=== PATIENT | female | born 1990 | race Caucasian/White ===

== ENCOUNTER 2019-08-22 12:44 | Emergency (ER) | payer OTHER, SELFPAY ==
[2019-08-22 12:47] VITALS: BP 140/75; PULSE 104; RESP 18; TEMP 37; O2SAT 99
--- NOTE | 2019-08-22 12:52 | ED.GENADULT ---
HPI - General Adult General Chief complaint: Vaginal Bleeding Stated complaint: 7weeks preg, bleeding Time Seen by Provider: 08/22/19 12:48 Source: patient History of Present Illness HPI narrative: Patient is 7 weeks based on last menstrual period. She has a 5-year-old child and then has had 2 prior miscarriages, at 3 and 5 weeks. She is followed by Dr. Byrne and she has an appointment with her next week for an ultrasound. She called the office yesterday because she was bleeding and they told her to go to the emergency room should her bleeding increase. Today she passed a large clot, she denies any pain or fever. She does not know her blood type but she is never received RhoGam for her previous 2 miscarriages. She is a AB 2 currently . Onset (ago): day(s) Associated symptoms: denies other symptoms Related Data Home Medications Medication Instructions Recorded Confirmed [id number] fum-folic [id number] pkg PO DAILY 08/22/19 [Daily ] Allergies Allergy/AdvReac Type Severity Reaction Status Date / Time No Known Allergies Allergy Verified 08/22/19 13:14 Review of Systems Review of Systems: All systems reviewed & are unremarkable except as noted in HPI and below Psychiatric: Psychiatric: Reports anxiety [facility] Social History Social History (Updated 08/22/19 @ 13:04 by Ceci Webb PA-C) Tobacco type: e-cigarettes Smoking end date: 08/12/19 Alcohol intake: never Substance use: never Living arrangements: with family Occupation/Education: occupation 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 Exam Const: General: healthy appearing and no acute distress Orientation/consciousness: patient oriented x3 HENMT: Head: normal to inspection Eyes: Pupils: Equal, round and reactive pupils present Resp: Effort & Inspection: normal respiratory effort Auscultation: clear to auscultation bilaterally Cardio: Rate: tachycardic Rhythm: regular rhythm GI: GI Palp: Yes Soft to palpation Auscultation: normal bowel sounds : Speculum Exam - Vagina: normal appearance of the vagina and vaginal bleeding (1 small clot) Speculum Exam - Cervix: normal appearance of the cervix and Cervical os closed Skin: General skin exam: normal color Rashes: no rashes Neuro: General: patient oriented x3 and moves all extremities Extrem: General: normal to inspection Psych: Affect: Anxious affect present Course Course Emergency Course: Pelvic exam with mild bleeding, cervix is closed. Spoke with Dr. Hassan, on-call for Chavez. She would like a repeat Beta HCG quant on Saturday prior to ultrasound. Will obtain blood type here, pt has not required RhoGam with prior . Plan discussed with patient. Transfer Transfered to: [facility] Medical Decision Making Lab Data Lab results reviewed: Yes I reviewed the patient's lab results. Discharge Plan Discharge Clinical Impression: Threatened Patient Disposition: Home, Self-Care Condition: Stable Instructions: Antibiotic Form, Threatened Miscarriage (ED) Prescriptions: No Action Daily [id number] mg-mcg-mg Combo Pack PO DAILY RF: 0 Other Ambulatory Orders: Beta HCG Quantitative (Routine) Timeframe: [id number] Facility: [facility] - Location: [facility] Laboratory Ordered By: Ceci Webb Follow-up/Referrals: Jeff Byrne MD [Physician] - 08/24/19 (Have blood drawn prior to ultrasound appointment.) UNKNOWN,DOCTOR [Primary Care Provider] - Stand Alone Forms: Work/School Release IP Time of Disposition: 15:03
[2019-08-22 14:06] LABS: Beta HCG Quantitative 597.52 mIU/ML
[2019-08-22 15:15] VITALS: BP 129/80; PULSE 84; RESP 16; O2SAT 100
== END 2019-08-22 15:10 | disposition home or self-care (01) ==
PROVIDERS: Physician Assistant; Emergency Provider Emergency Medicine
DX: O20.0 Threatened abortion (principal); Z3A.01 Less than 8 weeks gestation of pregnancy; Z87.891 Personal history of nicotine dependence
CPT/HCPCS: 36415; 81025; 84702; 86850; 86900; 86901; 99284

== ENCOUNTER 2019-08-24 09:14 | Outpatient (CLI) | payer OTHER, SELFPAY ==
--- NOTE | ~2019-08-24 | US_ITS ---
EXAMINATION: US OB transvaginal DATE: 08/24/2019 09:35 INDICATION: Gestational dating. Vaginal bleeding. TECHNIQUE: Real-time transvaginal obstetric ultrasound. FINDINGS: No prior studies for comparison. The uterus measures 6.4 x 4.7 x 5.1 cm. No intrauterine gestational sac or pole identified. The re is fluid in the lower aspect of the endometrium. Endometrium measures 9 mm thickness. Ovaries are within normal limits without significant solid or cystic mass. Right ovary measures 2.6 x 1.6 x 3.2 c m. Left ovary measures 1.8 x 1.8 x 1.4 cm. No free fluid in the pelvis. IMPRESSION: 1. Unremarkable pelvic ultrasound. No evidence for intrauterine gestational sac or pole. If the re is a positive test, differential diagnosis includes very early intrauterine , e ctopic and failed . Recommend follow-up with serial quantitative beta-hCG levels a nd ultrasound as clinically indicated. Reviewed, dictated and finalized at location A. IMPRESSION: 1. Unremarkable pelvic ultrasound. No evidence for intrauterine gestational sac or pole. If there is a positive test, differential diagnosis i ncludes very early intrauterine , ectopic and failed pregnan cy. Recommend follow-up with serial quantitative beta-hCG levels and ultrasound as clinically indicated.
== END 2019-08-24 09:15 ==
LOC: MICIMG 09:14
PROVIDERS: Visit Provider Obstetrics & Gynecology
DX: O26.21 Pregnancy care for patient with recurrent pregnancy loss, first trimester (principal); Z3A.00 Weeks of gestation of pregnancy not specified
CPT/HCPCS: 76817

== ENCOUNTER 2020-05-25 14:03 | Outpatient (CLI) | payer OTHER, SELFPAY ==
--- NOTE | ~2020-05-25 | US_ITS ---
EXAMINATION: US OB transvaginal DATE: 05/25/2020 14:31 INDICATION: viability assessment during first trimester TECHNIQUE: Real-time pelvic transabdominal and transvaginal ultrasound was performed. COMPARISON: None. FINDINGS: The uterus measures 9.2 x 4.9 x 5.6 cm. There is an intrauterine gestational sac. A yolk sa c is identified. heart motion is identified measuring 108 beats per minute (bpm) by M-mode Dopp ler. The crown rump length measures 3 mm , which correlates with an estimated gestational age o f 5 weeks and 6 day(s) (+/-) 4 day(s). The right ovary measures 3.3 x 2.1 x 2.3 cm. The left ovary measures 1.9 x 1.2 x 1.7 cm. There is nor mal vascular flow in the ovaries. There is no free fluid in the pelvis. IMPRESSION: 1. Live intrauterine with an estimated gestational age of 5 weeks and 6 day(s) (+/-) 4 day( s) and an estimated delivery date of 01/19/2021. Reviewed, dictated and finalized at location A. 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 IMPRESSION: 1. Live intrauterine with an estimated gestational age of 5 weeks and 6 day(s) (+/-) 4 day(s) and an estimated delivery date of 01/19/2021.
== END 2020-05-25 14:04 ==
PROVIDERS: Visit Provider Obstetrics & Gynecology
DX: O26.21 Pregnancy care for patient with recurrent pregnancy loss, first trimester (principal); Z3A.01 Less than 8 weeks gestation of pregnancy
CPT/HCPCS: 76817

== ENCOUNTER 2020-06-03 13:34 | Outpatient (CLI) | payer OTHER, SELFPAY ==
--- NOTE | ~2020-06-03 | US_ITS ---
EXAMINATION: US OB transvaginal DATE: 06/03/2020 13:56 INDICATION: with inconclusive viability. TECHNIQUE: Real-time transvaginal pelvic ultrasound was performed. COMPARISON: Ultrasound 05/25/2020 FINDINGS: The uterus measures 7.8 x 5.9 x 6.2 cm. There is an intrauterine gestational sac. A yolk sac is ident ified. The crown rump length measures 1.5 cm, which correlates with an estimated gestational a ge of 7 weeks and 6 day(s) (+/-) 5 day(s). heart motion is identified measuring 146 beats per m inute (bpm) by M-mode Doppler. The ovaries are not visualized. There is no free fluid in the pelvis. IMPRESSION: 1. Single living intrauterine gestation with estimated date of delivery of 01/19/2021 based on the ult rasound from 05/25/2020. Reviewed, dictated and finalized at location B. 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 Single living intrauterine gestation with estimated date of delivery of 01/19 based on the ultrasound from 05/25/2020.
== END 2020-06-03 13:35 ==
PROVIDERS: Visit Provider Obstetrics & Gynecology
DX: O36.80X0 Pregnancy with inconclusive fetal viability, not applicable or unspecified (principal); Z3A.00 Weeks of gestation of pregnancy not specified
CPT/HCPCS: 76817

== ENCOUNTER 2020-08-19 15:17 | Outpatient (CLI) | payer OTHER, SELFPAY ==
--- NOTE | ~2020-08-19 | US_ITS ---
EXAMINATION: US OB >= 14 weeks Fetus DATE: 08/19/2020 15:57 INDICATION: Second trimester anatomic survey TECHNIQUE: Real-time ultrasound of the pelvis was performed. COMPARISON: None. FINDINGS: There is a single living fetus in breech presentation. The placenta is posterior and 4.4 cm from the internal cervical os. heart rate is 136 beats per minute (bpm). cardiac activity and fet al movement are noted. The amniotic fluid index is subjectively normal. The following anatomy was identified as normal: 4 chamber heart 3 vessel cord cord insertion kidneys urinary bladder stomach spine diaphragm ventricles cisterna magna cerebellum The following biometric data were obtained: Biparietal diameter (BPD): 4.2 cm; head circumference (HC): 15.6 cm; abdominal circumference (AC): 12 .6 cm; femur length (FL): 2.6 cm. These measurements are concordant. Estimated weight is 226 g +/- 33 g, which correlates with the 45th percentile when 01/19/2021 is used as estimated date of delivery. As single measurements, these parameters are each equal to the following estimated gestational ages w ith ranges of +/- 2 standard deviations: BPD: 18 weeks 6 days ( 17 weeks 1 days - 20 weeks 4 days). HC: 18 weeks 4 days ( 17 weeks 1 days - 20 weeks 0 days). AC: 18 weeks 2 days ( 16 weeks 1 days - 20 weeks 2 days). FL: 17 weeks 6 days ( 16 weeks 4 days - 19 weeks 2 days). estimated gestational age based solely on measurements from this exam is 18 weeks 3 days +/- 1 weeks 2 days. IMPRESSION: 1. Single living fetus in breech presentation. 2. Estimated weight is 226 g +/- 33 g, which correlates with the 45th percentile when 01/19/2021 is used as estimated date of delivery. Reviewed, dictated and finalized at location A. IMPRESSION: 1. Single living fetus in breech presentation. 2. Estimated weight is 226 g +/- 33 g, which correlates with the 45th per centile when 01/19/2021 is used as estimated date of delivery.
== END 2020-08-19 15:18 ==
PROVIDERS: Visit Provider Obstetrics & Gynecology
DX: Z36.9 Encounter for antenatal screening, unspecified (principal); Z3A.18 18 weeks gestation of pregnancy
CPT/HCPCS: 76805

== ENCOUNTER 2020-11-02 13:28 | Outpatient (CLI) | payer OTHER, SELFPAY ==
--- NOTE | ~2020-11-02 | US_ITS ---
EXAMINATION: US OB follow up DATE: 11/02/2020 13:59 INDICATION: Size greater than dates. TECHNIQUE: Real-time ultrasound of the pelvis was performed. COMPARISON: Ultrasound 08/19/2020, 06/03/2020, 05/25/2020 FINDINGS: There is a single living fetus in vertex presentation. The placenta is posterior. heart rate i s 145 beats per minute (bpm). The amniotic fluid index is 14.8 cm, which is normal. The following biometric data were obtained: Biparietal diameter (BPD): 7.5 cm; head circumference (HC): 28.8 cm; abdominal circumference (AC): 28 .3 cm; femur length (FL): 5.9 cm. These measurements are concordant. Estimated weight is 1791 g +/- 269 g, which correlates with >97th percentile when 01/19/21 is use d as estimated date of delivery. As single measurements, these parameters are each equal to the following estimated gestational ages w ith ranges of +/- 2 standard deviations: BPD: 30 weeks 0 days (27 weeks 6 days - 32 weeks 2 days). HC: 31 weeks 5 days (28 weeks 5 days - 34 weeks 5 days). AC: 32 weeks 2 days (29 weeks 2 days - 35 weeks 2 days). FL: 30 weeks 5 days (27 weeks 5 days - 33 weeks 5 days). estimated gestational age based solely on measurements from this exam is 31 weeks 1 days +/- 2 weeks 1 days. IMPRESSION: 1. Single living fetus in vertex presentation. 2. Large for gestational age. Estimated weight is 1791 g +/- 269 g, which correlates with >97th percentile when 01/19/21 is used as estimated date of delivery. This date was set by ultrasound on 05/13. Reviewed, dictated and finalized at location A. IMPRESSION: 1. Single living fetus in vertex presentation. 2. Large for gestational age. Estimated weight is 1791 g +/- 269 g, which correlates with >97th percentile when 01/19/21 is used as estimated date of deli very. This date was set by ultrasound on 05/25/2020.
== END 2020-11-02 13:29 ==
PROVIDERS: Visit Provider Nurse Practitioner
DX: O36.63X0 Maternal care for excessive fetal growth, third trimester, not applicable or unspecified (principal)
CPT/HCPCS: 76816

== ENCOUNTER 2020-11-27 10:24 | Observation (INO) | payer OTHER, SELFPAY ==
[2020-11-27] VITALS (20 sets, daily range): BP systolic 113–138; BP diastolic 60–82; PULSE 88–113; O2SAT 99–100; BMI 47.5
[2020-11-27] MEDS: TERBUTALINE SULFATE 1 MG/ML VIAL 0.25 MG SUB-Q (14:02)
--- NOTE | 2020-11-27 14:04 | OBADM ---
This patient, Mamta Ansari, admitted to the OB room OB Post 113 for observation. Patient/family oriented to hospital policies and general routines including ID bracelet, bed and alarms, visiting hours, pain management, procedures, bathroom and other care routines, personal items, smoking policy, room service/diet, call light and visiting hours. Patient/Family are encouraged to report perceived risks to care and to ask questions if they do not understand what they are told or what they should do.
--- NOTE | 2020-11-27 14:10 | PC.NURSE ---
Pt states she takes 34 units of insulin at bedtime but does not know what type.
--- NOTE | 2020-12-12 09:38 | PM.OBTRLD ---
OB - Triage/Final Diagnosis Visit Information Reason for evaluation: other ( contractions) Comments/Additional reasons for admission: I have assessed the risk for this patient, Mamta Ansari, and determined that she would benefit from observation care.
== END 2020-11-27 15:25 | disposition home or self-care (01) ==
PROVIDERS: Admitting Provider Obstetrics & Gynecology; Visit Provider Obstetrics & Gynecology Gynecology
DX: O60.00 Preterm labor without delivery, unspecified trimester (principal); Z3A.00 Weeks of gestation of pregnancy not specified
CPT/HCPCS: 96372; G0378; G0379; J3105

== ENCOUNTER 2020-12-20 16:57 | Outpatient (CLI) | payer OTHER, SELFPAY ==
--- NOTE | ~2020-12-20 | US_ITS ---
EXAMINATION: US OB follow up DATE: 12/20/2020 17:26 INDICATION: Estimated size greater than expected for estimated gestational age during third [facility] . TECHNIQUE: Real-time ultrasound of the pelvis was performed. The interpreting radiologist was not pre sent for the study. COMPARISON: None. FINDINGS: There is a single living fetus in vertex presentation. The placenta is posterior. heart rate i s 127 beats per minute (bpm). The amniotic fluid index is 21.2 cm, which is normal (5th%-95%: 7.5-24 .9 cm at 35 weeks estimated gestational age). The following biometric data were obtained: BPD: 9.1 cm -> 36 weeks 5 days Head circumference: 33.3 cm -> 38 weeks 0 days Abdominal circumference: 35.5 cm -> 39 weeks 3 days Femur length: 7.1 cm -> 36 weeks 2 days These measurements are concordant. Head circumference to abdominal circumference ratio: 0.94 (normal range 0.91-1.05). Estimated weight: 3427 g (+/-) 514 g or 7 lbs. 9 oz. (+/-) 1 lbs. 2 oz. IMPRESSION: 1. Single living fetus in vertex presentation with heart rate of 127 bpm. 2. Normal amniotic fluid index of 21.2 cm. 3. Estimated weight is 97th percentile by Hadlock criteria when 01/19/2021 is used as the estimated date of delivery (ARMIDA) res pond earliest ultrasound performed at this institution on 05/25/2020. Please correlate with clinical i nformation or earlier ultrasounds for most accurate ARMIDA. Reviewed, dictated and finalized at location A. IMPRESSION: 1. Single living fetus in vertex presentation with heart rate of 127 bpm. 2. Normal amniotic fluid index of 21.2 cm. 3. Estimated weight is 97th percentile by Hadlock criteria when 01/19/2021 is used as the estimated date of delivery (ARMIDA) respond earliest ultrasound performed at this institution on 05/25/2020. Please correlate with clinical information or earlier ultrasounds f or most accurate ARMIDA.
== END 2020-12-20 16:58 ==
PROVIDERS: Visit Provider Obstetrics & Gynecology
DX: O36.63X0 Maternal care for excessive fetal growth, third trimester, not applicable or unspecified (principal); Z3A.00 Weeks of gestation of pregnancy not specified
CPT/HCPCS: 76816

== ENCOUNTER 2021-01-03 13:47 | Outpatient (CLI) | payer OTHER, SELFPAY ==
--- NOTE | ~2021-01-03 | US_ITS ---
EXAMINATION: US OB follow up EXAM DATE: 01/03/2021 14:11 INDICATION: Large for gestational age. 3rd trimester. TECHNIQUE: Pelvic obstetrical transabdominal sonogram was performed by a technologist. There are mu ltiple grayscale and Doppler images available for interpretation. Comparison is made to prior examina tion from 12/20/2020. FINDINGS: There is a single fetus identified in vertex presentation with a heart rate of 138 beats pe r minute. The placenta is located in the posterior position. There is no sonographic evidence of ret roplacental hemorrhage identified. The amniotic fluid index is 17.8 centimeters, which is normal. BIOMETRIC DATA: Biparietal diameter (BPD): 9.4 cm ----------------> 38 weeks 0 days. Head circumference (HC): 34.8 cm ----------------> 40 weeks 3 days. Abdominal circumference (AC): 41.1 cm ----------> out of range. Femur length (FL): 7.9 cm --------------------------> 40 weeks 2 days. These measurements are discordant, FL/AC 2 standard deviations out of range, and low HC/AC ratio. HC/AC ratio is 0.85 (The 5th -- 95th percentile range is 0.89-1.04. Estimated weight is 4795 g +/- 719 g. This is the greater than 97th percentile when the [facility] reported clinical gestation age 37 weeks 5 days, clinical estimated date of delivery (ARMIDA-OPE) 01/19 is used. estimated gestational age based on measurements from this exam is 29 weeks 4 days, w ith an estimated date of delivery (ARMIDA-AUA) 01/06. IMPRESSION: 1. Single fetus in vertex presentation with heart rate 138 beats per minute. 2. Estimated weight of 4795 grams, greater than 97th percentile using the currently reported c linical gestation age of 37 weeks 5 days, ARMIDA(OPE) 01/19. 3. Discordant FL/AC and HC/AC ratios. 4. Normal ASIA 17.8 cm. Reviewed, dictated and finalized at location A. IMPRESSION: 1. Single fetus in vertex presentation with heart rate 138 beats per minute. 2. Estimated weight of 4795 grams, greater than 97th percentile using th e currently reported clinical gestation age of 37 weeks 5 days, ARMIDA(OPE) 01/19. 3. Discordant FL/AC and HC/AC ratios. 4. Normal ASIA 17.8 cm.
== END 2021-01-03 13:48 ==
PROVIDERS: Visit Provider Obstetrics & Gynecology
DX: O36.60X0 Maternal care for excessive fetal growth, unspecified trimester, not applicable or unspecified (principal); Z3A.00 Weeks of gestation of pregnancy not specified
CPT/HCPCS: 76816

== ENCOUNTER 2021-01-05 15:24 | Inpatient (IN) | payer OTHER, SELFPAY ==
[2021-01-05] VITALS (63 sets, daily range): BP systolic 83–166; BP diastolic 53–104; PULSE 68–96; RESP 16–18; TEMP 36.4–36.7; O2SAT 94–100; BMI 55.6
[2021-01-05 16:31] LABS: Basophils Percent Auto 0.2 % (0.2-1.2); Eosinophils Absolute Auto 0.1 K/mm3 (0-0.3); Eosinophils Percent Auto 1.1 % (0-4.4); Hematocrit 33.6 % (37.0-47.0); Hemoglobin 10.6 g/dL (12.0-15.0); Immature Granulocyte Absolute 0.05 K/mm3 (0.00-0.031); Immature Granulocyte Percent A 0.5 % (0-0.5); Immature Platelet Fraction Pct 16.8 % (0.9-11.2); Lymphocytes Percent Auto 28.5 % (18.3-44.2); Mean Corpuscular HGB Conc 31.5 g/dl (32-36); Mean Corpuscular Hemoglobin 28.7 pg (26-34); Mean Corpuscular Volume 91.1 fl (80-100); Mean Platelet Volume 13.6 fl (7.4-10.4); Monocytes Absolute Auto 0.6 K/mm3 (0.1-0.6); Monocytes Percent Auto 5.8 % (2.6-8.5); Neutrophils Absolute Auto 6.1 K/mm3 (1.3-6.7); Neutrophils Percent Auto 63.9 % (45.5-73.1); Platelet Count Result 161 k/mm3 (150-375); Red Blood Count 3.69 M/mm3 (4.2-5.4); Red Cell Distribution Width 15.2 % (11.5-14.5); White Blood Count 9.5 K/mm3 (4.5-10.0)
[2021-01-05 17:34] LABS: Add Urine Microscopic? YES; Appearance Urine Clear (Clear); Bilirubin Urine Negative (Negative); Blood Urine 1+ (Negative); Color Urine Yellow (Yellow); Glucose Urine UA Negative (Negative); Ketones Urine Negative (Negative); Leukocyte Esterase Ur Trace LEU/UL (Negative); Nitrate Urine Negative (Negative); Protein Urine 2+ mg/dL (Negative); Squamous Epithelial Cell Urine Few /hpf (Few); Urobilinogen Urine Negative mg/dL (<2.0); WBC Urine 0-3 /hpf
[2021-01-05 17:48] LABS: Alanine Aminotransferase 13 U/L (4-35); Alkaline Phosphatase 118 U/L (38-126); Anion Gap 6 mmol/L (8-16); Aspartate Amino Transferase 25 U/L (14-36); Bilirubin,Total 0.4 mg/dL (0.2-1.3); Blood Urea Nitrogen 9 mg/dL (7-17); Calcium 8.2 mg/dL (8.4-10.2); Carbon Dioxide 22 mmol/L (22-30); Chloride 106 mmol/L (98-107); Estimated Glomerular Filt Rate > 60; Glucose 156 mg/dL (65-110); Sodium 134 mmol/L (137-145); Uric Acid 5.8 mg/dL (2.5-7.5)
[2021-01-05 19:18] LABS: Creatinine Urine 55.2 mg/dL; Total Protein Urine Random 163 mg/dL; Ur Ttl Prot Creatinine Ratio 2.95 mg/mg (0-0.20)
--- NOTE | 2021-01-05 19:54 | WPDANESEPP ---
Anes - Eval Pre Procedure Procedure: Operation Date: 01/05/21 19:45 Proposed Procedures p Section - Belen Burciaga MD Date/Time: 01/05/21 19:54 Pre Op Diagnosis: hypertension in Patient Data Age: 30 Gender: F Height: Weight: Last Vital Signs Pulse 90 01/05/21 19:31 BP 155/103 H 01/05/21 19:31 Allergies Allergy/AdvReac Type Severity Reaction Status Date / Time No Known Allergies Allergy Verified 11/27/20 14:08 Home Medications Medication Instructions Recorded Confirmed Type ergocalciferol (vitamin D2) 1,250 mcg PO WEEKLY 12/30/20 01/05/21 History [Vitamin D2] ferrous sulfate 325 mg PO DAILY 12/30/20 01/05/21 History insulin NPH isoph U-100 human 52 unit SUBCUT HS 12/30/20 01/05/21 History [Humulin N NPH U-100 Insulin] aspirin 81 mg PO DAILY 01/05/21 01/05/21 History [id number] 1 cap PO HS 01/05/21 01/05/21 History [One-A-Day -1] Laboratory Tests 01/05/21 01/05/21 01/05/21 16:18 16:18 17:03 WBC 9.5 K/mm3 K/mm3 (4.5-10.0) RBC 3.69 M/mm3 L M/mm3 (4.2-5.4) Hgb 10.6 g/dL L g/dL (12.0-15.0) Hct 33.6 % L % (37.0-47.0) MCV 91.1 fl fl (80-100) MCH 28.7 pg pg (26-34) MCHC 31.5 g/dl L g/dl (32-36) RDW 15.2 % H % (11.5-14.5) Plt Count 161 k/mm3 k/mm3 (150-375) MPV 13.6 fl H fl (7.4-10.4) Immature Gran % (Auto) 0.5 % % (0-0.5) Neut % (Auto) 63.9 % % (45.5-73.1) Lymph % (Auto) 28.5 % % (18.3-44.2) Willacy % (Auto) 5.8 % % (2.6-8.5) Eos % (Auto) 1.1 % % (0-4.4) Baso % (Auto) 0.2 % % (0.2-1.2) Lymph # (Auto) 2.70 K/mm3 K/mm3 (0.9-3.2) Willacy # (Auto) 0.6 K/mm3 K/mm3 (0.1-0.6) Eos # (Auto) 0.1 K/mm3 K/mm3 (0-0.3) Baso # (Auto) 0.0 K/mm3 K/mm3 (0.0-0.1) Abs Immat Gran (auto) 0.05 K/mm3 H K/mm3 (0.00-0.031) Absolute Neuts (auto) 6.1 K/mm3 K/mm3 (1.3-6.7) Absolute Nucleated RBC 0.0 K/mm3 K/mm3 (0.0-0.012) Nucleated RBC % 0.0 % % (0.0-0.2) % Immature Plt Fraction 16.8 % H % (0.9-11.2) Sodium 134 mmol/L L mmol/L (137-145) Potassium 4.0 mmol/L mmol/L (3.4-5.0) Chloride 106 mmol/L mmol/L (98-107) Carbon Dioxide 22 mmol/L mmol/L (22-30) Anion Gap 6 mmol/L L mmol/L (8-16) BUN 9 mg/dL mg/dL (7-17) Creatinine 0.60 mg/dL L mg/dL (0.7-1.0) Estim Creat Clear Calc Not Reportable Estimated GFR > 60 (59 - ) Glucose 156 mg/dL H mg/dL (65-110) Uric Acid 5.8 mg/dL mg/dL (2.5-7.5) Calcium 8.2 mg/dL L mg/dL (8.4-10.2) Total Bilirubin 0.4 mg/dL mg/dL (0.2-1.3) AST 25 U/L U/L (14-36) ALT 13 U/L U/L (4-35) Alkaline Phosphatase 118 U/L U/L (38-126) Total Protein 6.0 g/dL L g/dL (6.3-8.2) Albumin 3.0 g/dL L g/dL (3.5-5.1) Urine Color Urine Appearance Urine pH Ur Specific Eva Urine Protein Urine Glucose (UA) Urine Ketones Ur Blood (Man) Urine Nitrate Urine Bilirubin Urine Urobilinogen Leukocyte Esterase Rfl Urine RBC Urine WBC Ur Squamous Epith Cells U Random Total Protein 163 mg/dL mg/dL Urine Creatinine 55.2 mg/dL mg/dL Protein/Creat Ratio 2 2.95 mg/mg H mg/mg (0-0.20) 01/05/21 17:03 WBC RBC Hgb Hct MCV MCH MCHC RDW Plt Count MPV Immature Gran % (Auto) Neut % (Auto) Lymph % (Auto) Willacy % (Auto) Eos % (Auto) Baso % (Auto) Lymph # (Aut
--- NOTE | 2021-01-05 19:57 | LDADM ---
This patient, Mamta Ansari, was admitted to Labor/Delivery/Recovery 120 on 01/05/21 at 15:24. Plans for labor, pain management and were discussed with patient. Patient/family oriented to hospital policies and general routines including ID bracelet, bed and alarms, visiting hours, pain management, procedures, bathroom and other care routines, personal items, smoking policy, room service/diet and guest tray routines, security routines, and visiting hours. Patient/Family are encouraged to report perceived risks to care and to ask questions if they do not understand what they are told or what they should do. See OBIX for further documentation.
[2021-01-05] MEDS: LACTATED RINGERS 1,000 ML 125 ML IV CONT (20:01)
[2021-01-05 20:09] LABS: Basophils Percent Auto 0.2 % (0.2-1.2); Eosinophils Absolute Auto 0.1 K/mm3 (0-0.3); Eosinophils Percent Auto 0.9 % (0-4.4); Hematocrit 37.6 % (37.0-47.0); Hemoglobin 12.3 g/dL (12.0-15.0); Immature Granulocyte Absolute 0.07 K/mm3 (0.00-0.031); Immature Granulocyte Percent A 0.6 % (0-0.5); Immature Platelet Fraction Pct 15.8 % (0.9-11.2); Lymphocytes Absolute Auto 4.32 K/mm3 (0.9-3.2); Lymphocytes Percent Auto 36.5 % (18.3-44.2); Mean Corpuscular HGB Conc 32.7 g/dl (32-36); Mean Corpuscular Hemoglobin 29.2 pg (26-34); Mean Corpuscular Volume 89.3 fl (80-100); Mean Platelet Volume 12.9 fl (7.4-10.4); Monocytes Absolute Auto 0.8 K/mm3 (0.1-0.6); Monocytes Percent Auto 6.3 % (2.6-8.5); Neutrophils Absolute Auto 6.6 K/mm3 (1.3-6.7); Neutrophils Percent Auto 55.5 % (45.5-73.1); Nucleated Red Blood Cells Perc 0.2 % (0.0-0.2); Platelet Count Result 188 k/mm3 (150-375); Red Blood Count 4.21 M/mm3 (4.2-5.4); Red Cell Distribution Width 15.3 % (11.5-14.5); White Blood Count 11.8 K/mm3 (4.5-10.0)
--- NOTE | 2021-01-05 20:23 | PM.IMHP ---
H&P: HPI History of Present Illness Date/Time: 01/05/21 20:23 Chief Complaint: preeclampsia Narrative: 30 yo A3 at 38 4/7 wks with GDMA2 sent from office with elevated BP. Labs consistent with preeclampsia with estimated 24 hour urine of 4000mg and elevated uric acid. U/s just done with EFW of 4750 g and discussed in office with diabetes and >4500 recommendation is for csection delivery. Patient agreed to plan and due to preeclampsia will proceed with delivery now. In addition, patient and have both stated that they have completed childbearing and want to also proceed with BTL. Patient is aware this is a permanent and irreversible procedure rendering her sterile. Agrees to plan. [facility] Past Medical History Medical History (Updated 01/05/21 @ 20:30 by Belen Burciaga MD) Gestational diabetes mellitus insulin dependent IUP (intrauterine ), incidental (normal spontaneous vaginal delivery) Obesity PIH ( induced hypertension) Family History Family History (Updated 12/30/20 @ 13:39 by Mendez Galvez RN) Grandparent Diabetes mellitus Arthritis, rheumatoid Mother Diabetes mellitus Father Seizure Social History Social History (Updated 08/22/19 @ 13:04 by Ceci Webb PA-C) Smoking status: Former smoker Tobacco type: e-cigarettes/vaping Second hand tobacco smoke exposure: No Smoking end date: 04/12/20 Alcohol intake: never Substance use: never 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 Spiritual care concerns: No Meds Home Medications and Allergies Home Medications Medication Instructions Recorded Confirmed Type ergocalciferol (vitamin D2) 1,250 mcg PO WEEKLY 12/30/20 01/05/21 History [Vitamin D2] ferrous sulfate 325 mg PO DAILY 12/30/20 01/05/21 History insulin NPH isoph U-100 human 52 unit SUBCUT HS 12/30/20 01/05/21 History [Humulin N NPH U-100 Insulin] aspirin 81 mg PO DAILY 01/05/21 01/05/21 History [id number] 1 cap PO HS 01/05/21 01/05/21 History [One-A-Day -1] Allergies Allergy/AdvReac Type Severity Reaction Status Date / Time No Known Allergies Allergy Verified 11/27/20 14:08 Vital Signs Vital Signs - 24 hr 01/05/21 16:09 01/05/21 16:10 01/05/21 16:16 Pulse Rate 95 95 90 Blood Pressure 154/93 H 146/94 H Blood Pressure [Right Arm] 154/93 H 01/05/21 16:31 01/05/21 16:32 01/05/21 16:46 Pulse Rate 96 87 88 Blood Pressure 145/85 H 142/101 H Blood Pressure [Right Arm] 145/85 H 01/05/21 17:01 01/05/21 17:16 01/05/21 17:31 Pulse Rate 88 90 85 Blood Pressure 148/96 H 150/103 H 140/104 H Blood Pressure [Right Arm] 01/05/21 17:46 01/05/21 18:01 01/05/21 18:16 Pulse Rate 86 87 84 Blood Pressure 142/81 H 144/85 H 135/79 Blood Pressure [Right Arm] 01/05/21 18:31 01/05/21 18:46 01/05/21 19:01 Pulse Rate 79 82 88 Blood Pressure 136/83 131/86 145/87 H Blood Pressure [Right Arm] 01/05/21 19:26 01/05/21 19:31 Pulse Rate 88 90 Blood Pressure 166/103 H 155/103 H Blood Pressure [Right Arm] Exam Const: General: comfortable and alert Nutritional Appearance: obese Resp: Auscultation: clear to auscultation bilaterally GI: Inspection: normal to inspection Percussion: Yes other (fundal height 50) H&P: Results Labs Labs: Short CBC 01/05/21 01/05/21 Range/Units 16:18 20:02 WBC 9.5 11.8 H (4.5-10.0) K/mm3 Hgb 10.6 L 12.3 (12.0-15.0) g/dL Hct 33.6 L 37.6 (37.0-47.0) % Plt Count 161 188 (150-375) k/mm3 BMP 01/05/21 16:18 Sodium 134 L Potassium 4.0 Chloride 106 Carbon Dioxide 22 BUN 9 Creatinine 0.60 L Glucose 156 H Calcium 8.2 L Liver Function 01/05/21 Range/Units 16:18 Total Bilirubin 0.4 (0.2-1.3) mg/dL AST 25 (14-36) U/L ALT 13 (4-35) U/L Alkaline Phosphatase 118 (38-126) U/L Albumin 3.0 L (3.5-5.1) g/dL Urine 01/05/21 Range/Units 17:03 Urine Color Opal
[2021-01-05] MEDS: ceFAZolin 3 GM/D5W 100 ML 100 ML IVPB (20:25)
--- NOTE | 2021-01-05 20:34 | WPDHPUPDATE1 ---
History and Physical Update Update Date/Time: 01/05/21 20:34 History and Physical has been reviewed, including an updated exam of the patient. There are NO changes in the patient's condition. Risks, benefits, and alternatives have been discussed and questions answered. Patient agrees to proceed with procedure.
--- NOTE | 2021-01-05 21:20 | P.OP_ITS ---
Procedure Note - Detailed Date of Procedure 01/05/21 Pre-op Diagnosis 38 4/7 weeks GDMA2 preeclampsia requests sterilization Post-op Diagnosis same Procedure Performed LTCS Bilateral salpingectomy Surgeon Belen Burciaga MD Anesthesia spinal Findings 11lb 1oz male infant with Apgars of 8 [id number] 9 [id number]. 1900cc of clear fluid. Normal-appearing tubes ovaries and uterus. Description of Procedure the patient was taken to the operating room and placed in the dorsal supine position with a leftward tilt under spinal anesthesia. Once anesthesia was deemed adequate she was prepped and draped in usual fashion. A Pfannenstiel skin incision was made with a scalpel and carried down to underlying layer of fascia which was nicked in the midline. Bleeding vessels in the subcutaneous tissue were cauterized for hemostasis. The fascial incision was extended laterally using Alva scissors. The os Finders were used to tent the fascia which was then dissected off using sharp and blunt dissection. The peritoneum was entered with a Peon and extended with blunt traction. The vesicouterine peritoneum was tented and entered with Metzenbaum the incision was extended laterally and the bladder flap created digitally. The Robin O retractor was placed. The lower uterine segment was incised in a transverse fashion with the scalpel and extended laterally using blunt traction. Membranes were then ruptured and copious amounts of clear fluid are noted. The infant's head is delivered through the incision while the reproductive healthcare assistant applied fundal pressure. The infant was then fully delivered without difficulty and the cord clamped and cut. The was handed to the waiting nursery nurse. The placenta is removed using manual traction. The uterus is cleared of all clots and debris. The uterine incision is closed using 0 Monocryl in a running lock stitch with the same suture to imbricate. Good hemostasis is noted. The left tube was grasped with a Paris and the distal 2/3 of the tube are crossclamped. The tube is excised and suture ligated with 0 Vicryl. The identical procedure was performed on the right side. Good hemostasis is noted at the tubal sites. The cul-de-sac and gutters are irrigated. The tubal sites were again inspected and noted to be hemostatic as well as the uterine incision is noted to be hemostatic. The Robin O retractor is removed and the fascia closed using 0 Vicryl in a running fashion. Subcutaneous tissues are irrigated and made hemostatic using Bovie cautery. Skin incision was closed using 4-0 Vicryl in a subcuticular fashion. Dermaflex was placed over the incision. Sponge, needle, and instrument counts are correct per the OR staff. Patient was given 3g of Ancef prior to incision. Estimated Blood Loss 505 Drains Yes (darby) Packing No Pathology yes ( Placenta and bilateral tubes) Complications No immediate complications Condition stable Disposition floor
--- NOTE | 2021-01-05 21:26 | PM.OBDSVD ---
DS: Admitting Diagnosis Admitting Diagnosis intrauterine at 38 and 4/7th weeks gestational diabetes insulin requiring preeclampsia requests sterilization DS: Discharge Diagnosis Discharge Diagnosis (1) 38 weeks gestation of : Code(s): Z3A.38 - 38 weeks gestation of Status: Acute (2) Preeclampsia: Code(s): O14.90 - Unspecified pre-eclampsia, unspecified trimester Status: Acute Assessment and Plan: indication for delivery (3) Macrosomia: Code(s): P08.0 - Exceptionally large baby Status: Acute Assessment and Plan: indication for delivery (4) Encounter for sterilization: Code(s): Z30.2 - Encounter for sterilization Status: Acute (5) Gestational diabetes mellitus: Code(s): O24.419 - Gestational diabetes mellitus in , unspecified control Status: Acute (6) delivery delivered: Code(s): O82 - Encounter for delivery without indication Status: Acute OB - DS: Summary OB Procedures : NST, PIH Mgmt and Ultrasound OB Procedures Intrapartum: low cervical, transverse and Tubal ligation OB Procedures: : None Peripartum Data Delivery Method: Section Procedures: Procedures Operation Date: 01/05/21 19:45 <No data on this case meets the specified criteria> complications: none Status at Discharge Functional status at discharge: independent ambulation Overall status at discharge: patient is progressing back to baseline Time Spent with Patient Time attestation: Total time spent providing and/or coordinating discharge services: DS: Data Data Completed and Pending Labs on day of discharge: Labs from last 24 hours 01/05/21 01/05/21 01/05/21 20:02 20:02 20:02 WBC 11.8 H RBC 4.21 Hgb 12.3 Hct 37.6 MCV 89.3 MCH 29.2 MCHC 32.7 RDW 15.3 H Plt Count 188 MPV 12.9 H Immature Gran % (Auto) 0.6 H Neut % (Auto) 55.5 Lymph % (Auto) 36.5 [place] % (Auto) 6.3 Eos % (Auto) 0.9 Baso % (Auto) 0.2 Lymph # (Auto) 4.32 H [place] # (Auto) 0.8 H Eos # (Auto) 0.1 Baso # (Auto) 0.0 Abs Immat Gran (auto) 0.07 H Absolute Neuts (auto) 6.6 Absolute Nucleated RBC 0.0 Nucleated RBC % 0.2 % Immature Plt Fraction 15.8 H Sodium Potassium Chloride Carbon Dioxide Anion Gap BUN Creatinine Estim Creat Clear Calc Estimated GFR Glucose Uric Acid Calcium Total Bilirubin AST ALT Alkaline Phosphatase Total Protein Albumin Urine Color Urine Appearance Urine pH Ur Specific [place] Urine Protein Urine Glucose (UA) Urine Ketones Ur Blood (Man) Urine Nitrate Urine Bilirubin Urine Urobilinogen Leukocyte Esterase Rfl Urine RBC Urine WBC Ur Squamous Epith Cells U Random Total Protein Urine Creatinine Protein/Creat Ratio 2 RPR Pending Blood Type O Positive Antibody Screen Negative 01/05/21 01/05/21 01/05/21 17:03 17:03 16:18 WBC RBC Hgb Hct MCV MCH MCHC RDW Plt Count MPV Immature Gran % (Auto) Neut % (Auto) Lymph % (Auto) [place] % (Auto) Eos % (Auto) Baso % (Auto) Lymph # (Auto) [place] # (Auto) Eos # (Auto) Baso # (Auto) Abs Immat Gran (auto) Absolute Neuts (auto) Absolute Nucleated RBC Nucleated RBC % % Immature Plt Fraction Sodium 134 L Potassium 4.0 Chloride 106 Carbon Dioxide 22 Anion Gap 6 L BUN 9 Creatinine 0.60 L Estim Creat Clear Calc Not Reportable Estimated GFR > 60 Glucose 156 H Uric Acid 5.8 Calcium 8.2 L Total Bilirubin 0.4 AST 25 ALT 13 Alkaline Phosphatase 118 Total Protein 6.0 L Albumin 3.0 L Urine Color Yellow Urine Appearance Clear Urine pH 6.0 Ur Specific
[2021-01-05] MEDS: OXYTOCIN 30 UNITS/NS 500 ML 30 UNITS/500 ML BAG 125 UNITS IV CONT (22:32)
[2021-01-05] MEDS: diphenhydrAMINE HCl INJ 50 MG/ML VIAL 25 MG IV PUSH (23:33)
--- NOTE | 2021-01-05 23:45 | OBPPTRN ---
Patient transferred to post room #280 via stretcher. Support person present. Oriented to unit, room, information board, rooming in, admission packet and security measures. Patient verbalizes understanding.
[2021-01-06] VITALS (8 sets, daily range): BP systolic 122–147; BP diastolic 79–93; PULSE 78–95; RESP 16–18; TEMP 36.2–37.2; O2SAT 96–100
[2021-01-06] MEDS: DEXTROSE 5%/0.45% SOD CHL 1,000 ML 125 ML IV CONT (02:51)
[2021-01-06 05:03] LABS: Basophils Percent Auto 0.2 % (0.2-1.2); Eosinophils Absolute Auto 0.1 K/mm3 (0-0.3); Eosinophils Percent Auto 0.5 % (0-4.4); Hematocrit 31.3 % (37.0-47.0); Hemoglobin 10.1 g/dL (12.0-15.0); Immature Granulocyte Absolute 0.05 K/mm3 (0.00-0.031); Immature Granulocyte Percent A 0.4 % (0-0.5); Immature Platelet Fraction Pct 15.1 % (0.9-11.2); Lymphocytes Absolute Auto 2.46 K/mm3 (0.9-3.2); Lymphocytes Percent Auto 20.2 % (18.3-44.2); Mean Corpuscular HGB Conc 32.3 g/dl (32-36); Mean Corpuscular Hemoglobin 29.3 pg (26-34); Mean Corpuscular Volume 90.7 fl (80-100); Mean Platelet Volume 13.3 fl (7.4-10.4); Monocytes Absolute Auto 0.8 K/mm3 (0.1-0.6); Monocytes Percent Auto 6.7 % (2.6-8.5); Neutrophils Absolute Auto 8.8 K/mm3 (1.3-6.7); Platelet Count Result 139 k/mm3 (150-375); Red Blood Count 3.45 M/mm3 (4.2-5.4); Red Cell Distribution Width 15.2 % (11.5-14.5); White Blood Count 12.2 K/mm3 (4.5-10.0)
[2021-01-06] MEDS: IBUPROFEN 600 MG TABLET PO ×3 (05:57→21:48)
[2021-01-06] MEDS: HYDROcodone/acetaminophen (*CRX) 5-325 MG TABLET 1 TAB PO ×4 (05:57→21:48)
[2021-01-06 07:39] LABS: Rapid Plasma Reagin Non-Reactive (NonReactive)
--- NOTE | 2021-01-06 07:47 | PM.OBPNVD ---
OB - PN: Subj Subjective Date/time seen: 01/06/21 07:47 Patient comments: no complaints and pain well controlled baby status: doing well OB - PN: Obj Data Labs CBC & Chem 7: 01/06/21 04:15 01/05/21 16:18 Labs: Laboratory Results - last 24 hr 01/05/21 01/05/21 01/05/21 16:18 16:18 17:03 WBC 9.5 RBC 3.69 L Hgb 10.6 L Hct 33.6 L MCV 91.1 MCH 28.7 MCHC 31.5 L RDW 15.2 H Plt Count 161 MPV 13.6 H Immature Gran % (Auto) 0.5 Neut % (Auto) 63.9 Lymph % (Auto) 28.5 [place] % (Auto) 5.8 Eos % (Auto) 1.1 Baso % (Auto) 0.2 Lymph # (Auto) 2.70 [place] # (Auto) 0.6 Eos # (Auto) 0.1 Baso # (Auto) 0.0 Abs Immat Gran (auto) 0.05 H Absolute Neuts (auto) 6.1 Absolute Nucleated RBC 0.0 Nucleated RBC % 0.0 % Immature Plt Fraction 16.8 H Sodium 134 L Potassium 4.0 Chloride 106 Carbon Dioxide 22 Anion Gap 6 L BUN 9 Creatinine 0.60 L Estim Creat Clear Calc Not Reportable Estimated GFR > 60 Glucose 156 H Uric Acid 5.8 Calcium 8.2 L Total Bilirubin 0.4 AST 25 ALT 13 Alkaline Phosphatase 118 Total Protein 6.0 L Albumin 3.0 L Urine Color Urine Appearance Urine pH Ur Specific [place] Urine Protein Urine Glucose (UA) Urine Ketones Ur Blood (Man) Urine Nitrate Urine Bilirubin Urine Urobilinogen Leukocyte Esterase Rfl Urine RBC Urine WBC Ur Squamous Epith Cells U Random Total Protein 163 Urine Creatinine 55.2 Protein/Creat Ratio 2 2.95 H RPR Blood Type Antibody Screen 01/05/21 01/05/21 01/05/21 17:03 20:02 20:02 WBC 11.8 H RBC 4.21 Hgb 12.3 Hct 37.6 MCV 89.3 MCH 29.2 MCHC 32.7 RDW 15.3 H Plt Count 188 MPV 12.9 H Immature Gran % (Auto) 0.6 H Neut % (Auto) 55.5 Lymph % (Auto) 36.5 [place] % (Auto) 6.3 Eos % (Auto) 0.9 Baso % (Auto) 0.2 Lymph # (Auto) 4.32 H [place] # (Auto) 0.8 H Eos # (Auto) 0.1 Baso # (Auto) 0.0 Abs Immat Gran (auto) 0.07 H Absolute Neuts (auto) 6.6 Absolute Nucleated RBC 0.0 Nucleated RBC % 0.2 % Immature Plt Fraction 15.8 H Sodium Potassium Chloride Carbon Dioxide Anion Gap BUN Creatinine Estim Creat Clear Calc Estimated GFR Glucose Uric Acid Calcium Total Bilirubin AST ALT Alkaline Phosphatase Total Protein Albumin Urine Color Yellow Urine Appearance Clear Urine pH 6.0 Ur Specific [place] 1.010 Urine Protein 2+ H Urine Glucose (UA) Negative Urine Ketones Negative Ur Blood (Man) 1+ H Urine Nitrate Negative Urine Bilirubin Negative Urine Urobilinogen Negative Leukocyte Esterase Rfl Trace H Urine RBC 3-5 H Urine WBC 0-3 Ur Squamous Epith Cells Few U Random Total Protein Urine Creatinine Protein/Creat Ratio 2 RPR Non-reactive Blood Type Antibody Screen 01/05/21 01/06/21 20:02 04:15 WBC 12.2 H RBC 3.45 L Hgb 10.1 L Hct 31.3 L MCV 90.7 MCH 29.3 MCHC 32.3 RDW 15.2 H Plt Count 139 L MPV 13.3 H Immature Gran % (Auto) 0.4 Neut % (Auto) 72.0 Lymph % (Auto) 20.2 [place] % (Auto) 6.7 Eos % (Auto) 0.5 Baso % (Auto) 0.2 Lymph # (Auto) 2.46 [place] # (Auto) 0.8 H Eos # (Auto) 0.1 Baso # (Auto) 0.0 Abs Immat Gran (auto) 0.05 H Absolute Neuts (auto) 8.8 H Absolute Nucleated RBC 0.0 Nucleated RBC % 0.0 % Immature Plt Fraction 15.1 H Sodium Potassium Chloride Carbon Dioxide Anion Gap BUN Creatinine Estim Creat Clear Calc Estimated GFR Glucose Uric Acid Calcium Total Bilirubin AST ALT Alkaline Phosphatase Total Protein Albumin Urine Color Urine Appearance Urine pH Ur Specific [place] Urine Protein Urine Glucose (UA) Urine Ketones Ur Blood (Man) Urine
[2021-01-06] MEDS: MULTIVIT/MIN/PREN/FOL AC/IRON TABLET 1 TAB PO (09:14)
[2021-01-06] MEDS: DOCUSATE SODIUM 100 MG CAPSULE PO ×2 (09:14→16:06)
--- NOTE | 2021-01-06 11:53 | WPDANLDPN2 ---
Anes-Prog Note L&D Date/Time: 01/06/21 11:53 Comfortable throughout: section Neuraxial method: spinal Epidural/Spinal procedure site: clean & non-tender Neuro status: Neuro function grossly intact. Cardiovascular status: normal Respiratory status: normal Airway patency: baseline Mental status: baseline Post-Op hydration status: normal (catheter still in place. ) Vital Signs: Last Vital Signs Temp 37.1 C 01/06/21 07:30 Pulse 92 01/06/21 07:30 Resp 18 01/06/21 07:30 BP 122/79 01/06/21 07:30 Pulse Ox 98 01/06/21 07:30 Pain score (VAS): 0 I/O: Intake & Output 01/05/21 01/06/21 01/06/21 23:59 07:59 15:59 Intake Total 1000 500 600 Output Total 500 998 650 Balance 500 -498 -50 Post-procedural complaints: none Patient feedback: Patient satisfied with anesthetic care.
--- NOTE | 2021-01-06 11:54 | WPDANLDNPN2 ---
Anes-Prog Note L&D-Neuraxial Date/Time: 01/06/21 11:54 Neuraxial medications: intrathecal PF morphine Opiod-related complaints: none Patient feedback: Patient satisfied with post-operative pain management.
[2021-01-06] MEDS: SIMETHICONE 80 MG TAB.CHEW PO (16:06)
[2021-01-07] VITALS: BP 137/77; PULSE 93; RESP 16; TEMP 37.1; O2SAT 98
[2021-01-07 04:00] VITALS: BP 130/77; PULSE 87; RESP 16; TEMP 36.7; O2SAT 100
[2021-01-07] MEDS: DOCUSATE SODIUM 100 MG CAPSULE PO ×2 (06:36→17:49)
[2021-01-07] MEDS: HYDROcodone/acetaminophen (*CRX) 5-325 MG TABLET 1 TAB PO ×4 (06:36→23:31)
[2021-01-07] MEDS: IBUPROFEN 600 MG TABLET PO ×4 (06:37→23:31)
[2021-01-07 08:10] VITALS: BP 139/87; PULSE 83; RESP 16; TEMP 36.5; O2SAT 100
--- NOTE | 2021-01-07 11:08 | PM.OBPNVD ---
OB - PN: Subj Subjective Date/time seen: 01/07/21 11:08 Patient comments: no complaints and pain well controlled baby status: doing well OB - PN: Obj Data Labs CBC & Chem 7: 01/06/21 04:15 01/05/21 16:18 OB - PN A/P Plan day: 2 Plan: routine care Time Spent With Patient Time: Total time spent is greater than 50% in coordination of care (as documented) at patient's floor/unit and/or counseling patient: Exam Narrative: inc c/d/i : Bimanual exam- vagina & uterus: other (Uterus firm, nt @U)
[2021-01-07 12:45] VITALS: BP 143/96
[2021-01-07 16:25] VITALS: BP 134/81; PULSE 98; RESP 18; TEMP 36.6; O2SAT 99
[2021-01-07 20:00] VITALS: BP 152/93; PULSE 100; RESP 16; TEMP 36.7; O2SAT 100
[2021-01-08] VITALS: BP 143/88; PULSE 91; RESP 16; TEMP 36.3; O2SAT 100
[2021-01-08 04:30] VITALS: BP 109/60; PULSE 81; RESP 16; TEMP 36.2; O2SAT 100
[2021-01-08] MEDS: HYDROcodone/acetaminophen (*CRX) 5-325 MG TABLET 1 TAB PO ×2 (05:05→09:44)
[2021-01-08] MEDS: IBUPROFEN 600 MG TABLET PO (05:06)
[2021-01-08 07:00] VITALS: BP 135/88; PULSE 86; RESP 18; TEMP 36.3
--- NOTE | 2021-01-08 09:10 | PM.OBPNVD ---
OB - PN: Subj Subjective Date/time seen: 01/08/21 09:10 Patient comments: no complaints and pain well controlled baby status: doing well OB - PN: Obj Data Labs CBC & Chem 7: 01/06/21 04:15 01/05/21 16:18 OB - PN A/P Plan day: 3 Plan: routine care and discharge home Time Spent With Patient Time: Total time spent is greater than 50% in coordination of care (as documented) at patient's floor/unit and/or counseling patient: Exam : Bimanual exam- vagina & uterus: other (Uterus firm, nt @U)
--- NOTE | 2021-01-08 09:40 | PC.NURSE ---
Patient encouraged to view the discharge video Mother & Baby Care, The First Two Weeks . Patient was given the opportunity and encouraged to ask questions. Patient verbalized understanding of information shared and has been given the mother/baby guide for home reference.
[2021-01-08] MEDS: DOCUSATE SODIUM 100 MG CAPSULE PO (09:44)
[2021-01-08] MEDS: MULTIVIT/MIN/PREN/FOL AC/IRON TABLET 1 TAB PO (09:44)
[2021-01-09 08:54] VITALS: BP 150/94; PULSE 94; RESP 20; TEMP 37.2; O2SAT 99
== END 2021-01-08 10:14 | disposition home or self-care (01) | DRG 785 ==
LOC: ANHOBOP 15:32 → ANHOBPP 15:33 → ANHOBOP 19:39 → ANHLDR 19:39 → ANHOB2 23:49
PROVIDERS: Admitting Provider Obstetrics & Gynecology Gynecology; PCP Family Medicine; Visit Provider Obstetrics & Gynecology Gynecology
PROC: 10D00Z1 Extraction of Products of Conception, Low, Open Approach (ICD-10-PCS; CPT 59514; principal; 2021-01-05 19:45)
DX: O14.94 Unspecified pre-eclampsia, complicating childbirth (principal); Z37.0 Single live birth; Z3A.38 38 weeks gestation of pregnancy; O24.429 Gestational diabetes mellitus in childbirth, unspecified control; O36.63X0 Maternal care for excessive fetal growth, third trimester, not applicable or unspecified; Z30.2 Encounter for sterilization; O99.214 Obesity complicating childbirth; E66.9 Obesity, unspecified
CPT/HCPCS: 36415; 59025; 80053; 81001; 82570; 84156; 84550; 85025; 85055; 86592; 86850; 86900; 86901; 88302; 88307; A9270; J0131; J0690; J1200; J1885; J2274; J2405; J2590; J7120